=== PATIENT | male | born 1955 | race Caucasian/White ===

== ENCOUNTER 2021-08-26 14:57 | Day surgery (SDC) | payer MEDICARE ==
[2021-08-26] MEDS ORDERED: Depo-Medrol 40 MG/ML IM ONE (14:58)
[2021-08-26] MEDS ORDERED: Marcaine Mpf 0.5% Vial 30 Ml IJ ONE (14:58)
[2021-08-26] MEDS ORDERED: DIPRIVAN 200 MG/20 ML IV ONE (18:00)
[2021-08-26] MEDS ORDERED: Lactated Ringers 1,000 ML IV ONE (18:21)
--- NOTE | 2021-08-26 19:49 | XRAY ---
Indication: Bilateral SI joint injection. Intraoperative fluoroscopy provided for 14 seconds. 4 digital spot image submitted for interpretation demonstrates posterior needle tip projecting over the inferior left and right SI joint. Correlate with intraoperative findings/report.
--- NOTE | 2021-08-27 08:46 | XRAY ---
14 seconds fluoroscopy time in surgery for bilateral SI joint injections.
== END 2021-08-26 18:23 | disposition home or self-care (01) ==
LOC: SDC-PAIN 14:57
PROVIDERS: ATTEND Psychiatry & Neurology Pain Medicine
DX: M46.1 Sacroiliitis, not elsewhere classified (principal); Z79.899 Other long term (current) drug therapy
CPT/HCPCS: 27096; 72202; 77002; 82947; G0260; J1030; J2704

== ENCOUNTER 2021-12-09 12:01 | Day surgery (SDC) | payer MEDICARE ==
[2021-12-09] MEDS ORDERED: Depo-Medrol 40 MG/ML IM ONE (12:02)
[2021-12-09] MEDS ORDERED: Sodium Chloride 0.9(Preservative Free) 10 ML IJ ONE (12:02)
[2021-12-09] MEDS ORDERED: XYLOCAINE-MPF 1% 5ML SDV IJ ONE (12:02)
[2021-12-09] MEDS ORDERED: Lactated Ringers 1,000 ML IV ONE (14:25)
--- NOTE | 2021-12-09 15:06 | XRAY ---
Indication: Lumbar PAULO. Intraoperative fluoroscopy provided for 27 seconds. 2 digital spot image submitted for interpretation demonstrates posterior needle tip projecting posterior to L4-L5 interspace. Small amount of contrast injected for needle tip placement. Correlate with intraoperative findings/report.
--- NOTE | 2021-12-09 15:34 | XRAY ---
27 seconds fluoroscopy time in surgery for lumbar PAULO.
== END 2021-12-09 14:10 | disposition home or self-care (01) ==
LOC: SDC-PAIN 12:01
PROVIDERS: ATTEND Psychiatry & Neurology Pain Medicine
DX: M54.16 Radiculopathy, lumbar region (principal); Z79.899 Other long term (current) drug therapy
CPT/HCPCS: 62323; 72100; 77003; 82947; J1030; Q9966

== ENCOUNTER 2022-03-25 13:35 | Day surgery (SDC) | payer MEDICARE ==
[2022-03-25] MEDS ORDERED: Depo-Medrol 40 MG/ML IM ONE (13:36)
[2022-03-25] MEDS ORDERED: LIDOCAINE HCL 1% 50 MG/5 ML VL PF IJ ONE (13:36)
[2022-03-25] MEDS ORDERED: Sodium Chloride 0.9(Preservative Free) 10 ML IJ ONE (13:36)
[2022-03-25] MEDS ORDERED: Reglan 10 MG/2 ML ONE (14:21)
[2022-03-25] MEDS ORDERED: Pepcid 20 MG VIAL IV ONE (14:21)
[2022-03-25] MEDS ORDERED: DIPRIVAN 200 MG/20 ML IV ONE (15:28)
[2022-03-25] MEDS ORDERED: MORPHINE SULFATE 2 MG INJ ONE ×2 (16:11→16:37)
--- NOTE | 2022-03-25 16:33 | XRAY ---
Indication: Lumbar PAULO. Intraoperative fluoroscopy provided for 23 seconds. 3 digital spot image submitted for interpretation demonstrates posterior needle tip projecting posterior to L4-L5 interspace. Small amount of contrast injected for needle tip placement. Correlate with intraoperative findings/report.
--- NOTE | 2022-03-25 20:36 | XRAY ---
23 seconds fluoroscopy time in surgery for lumbar PAULO.
== END 2022-03-25 16:00 | disposition home or self-care (01) ==
LOC: SDC-PAIN 13:35
PROVIDERS: ATTEND Psychiatry & Neurology Pain Medicine
DX: M54.16 Radiculopathy, lumbar region (principal); Z79.899 Other long term (current) drug therapy
CPT/HCPCS: 62323; 72100; 77003; J1030; J2001; J2270; J2704; Q9966

== ENCOUNTER 2022-06-30 13:44 | Day surgery (SDC) | payer MEDICARE ==
[2022-06-30] MEDS ORDERED: Depo-Medrol 40 MG/ML IM ONE (13:45)
[2022-06-30] MEDS ORDERED: Sodium Chloride 0.9(Preservative Free) 10 ML IJ ONE (13:45)
[2022-06-30] MEDS ORDERED: DIPRIVAN 200 MG/20 ML IV ONE (15:33)
--- NOTE | 2022-06-30 16:26 | XRAY ---
Indication: Caudal PAULO Intraoperative fluoroscopy provided for 21 seconds. 2 digital spot images submitted for interpretation demonstrates caudal needle tip projecting mid sacrum. Small amount of contrast injected for needle tip placement. Correlate with intraoperative findings/report.
[2022-06-30] MEDS ORDERED: Lactated Ringers 1,000 ML IV ONE (16:44)
--- NOTE | 2022-07-01 08:45 | XRAY ---
21 seconds of fluoroscopy was used in surgery for a caudal PAULO.
== END 2022-06-30 16:00 | disposition home or self-care (01) ==
LOC: SDC-PAIN 13:44
PROVIDERS: ATTEND Psychiatry & Neurology Pain Medicine
DX: M54.16 Radiculopathy, lumbar region (principal); Z79.899 Other long term (current) drug therapy
CPT/HCPCS: 62323; 72220; 77003; J1030; J2704; Q9966

== ENCOUNTER 2022-07-21 07:52 | Day surgery (SDC) | payer MEDICARE ==
[2022-07-21] MEDS ORDERED: BUPIVACAINE 0.5% VIAL IJ ONE (07:53)
[2022-07-21] MEDS ORDERED: Depo-Medrol 40 MG/ML IM ONE (07:53)
[2022-07-21] MEDS ORDERED: DIPRIVAN 200 MG/20 ML IV ONE (09:15)
--- NOTE | 2022-07-21 09:57 | XRAY ---
Indication: Bilateral SI joint injection. Intraoperative fluoroscopy provided for 19 seconds. 4 digital spot image submitted for interpretation demonstrates posterior needle tip projecting over the left and right SI joint. Correlate with intraoperative findings/report.
[2022-07-21] MEDS ORDERED: Lactated Ringers 1,000 ML IV ONE (11:42)
--- NOTE | 2022-07-21 12:22 | XRAY ---
19 seconds of fluoroscopy was used in surgery for a bilateral sacroiliac joint injection.
== END 2022-07-21 09:50 | disposition home or self-care (01) ==
LOC: SDC-PAIN 07:52
PROVIDERS: ATTEND Psychiatry & Neurology Pain Medicine
DX: M46.1 Sacroiliitis, not elsewhere classified (principal); Z79.899 Other long term (current) drug therapy
CPT/HCPCS: 01992; 27096; 72202; 77002; 82947; G0260; J1030; J2704

== ENCOUNTER 2022-11-10 12:39 | Day surgery (SDC) | payer MEDICARE ==
[2022-11-10] MEDS ORDERED: Sodium Chloride 0.9(Preservative Free) 10 ML IJ ONE (12:40)
[2022-11-10] MEDS ORDERED: Depo-Medrol 40 MG/ML IM ONE (12:40)
[2022-11-10] MEDS ORDERED: DIPRIVAN 200 MG/20 ML IV ONE (14:35)
--- NOTE | 2022-11-10 15:14 | XRAY ---
Indication: Caudal PAULO. Intraoperative fluoroscopy provided for 17 seconds. 2 digital spot image submitted for interpretation demonstrates caudal needle tip projecting mid sacrum. Small amount of contrast injected for needle tip placement. Correlate with intraoperative findings/report.
[2022-11-10] MEDS ORDERED: Lactated Ringers 1,000 ML IV ONE (16:51)
--- NOTE | 2022-11-10 20:13 | XRAY ---
17 seconds of fluoroscopy was used in surgery for a caudal PAULO.
== END 2022-11-10 15:05 | disposition home or self-care (01) ==
LOC: SDC-PAIN 12:39
PROVIDERS: ATTEND Psychiatry & Neurology Pain Medicine
DX: M54.16 Radiculopathy, lumbar region (principal); Z79.899 Other long term (current) drug therapy
CPT/HCPCS: 62323; 72220; 77003; 82947; J1030; J2704; Q9966

== ENCOUNTER 2022-12-02 12:25 | Day surgery (SDC) | payer MEDICARE ==
--- NOTE | 2022-12-02 15:10 | XRAY ---
Indication: Left knee injection. Intraoperative fluoroscopy provided for 7 seconds. Single digital spot image submitted for interpretation demonstrates needle tip projecting over left femur intercondylar notch. Small amount of contrast injected for needle tip placement. Correlate with intraoperative findings/report.
--- NOTE | 2022-12-02 15:18 | XRAY ---
7 seconds of fluoroscopy was used in surgery for left intra-articular knee injection.
== END 2022-12-02 14:04 | disposition home or self-care (01) ==
LOC: SDC-PAIN 12:25
PROVIDERS: ATTEND Psychiatry & Neurology Pain Medicine
DX: M17.12 Unilateral primary osteoarthritis, left knee (principal); E11.9 Type 2 diabetes mellitus without complications; Z79.899 Other long term (current) drug therapy
CPT/HCPCS: 20610; 73560; 77002; 82947; Q9966

== ENCOUNTER 2023-06-08 15:23 | Day surgery (SDC) | payer MEDICARE ==
[2023-06-08] MEDS ORDERED: Depo-Medrol 40 MG/ML IM ONE (15:24)
[2023-06-08] MEDS ORDERED: BUPIVACAINE 0.5% VIAL IJ ONE (15:24)
[2023-06-08] MEDS ORDERED: XYLOCAINE-MPF 1% 5ML SDV IJ ONE (15:24)
--- NOTE | 2023-06-08 19:33 | XRAY ---
Indication: Left knee injection. Intraoperative fluoroscopy provided for 7 seconds. Single digital spot image submitted for interpretation demonstrates needle tip projecting over the left femur intercondylar notch. Small amount of contrast injected for needle tip placement. Correlate with intraoperative findings/report.
--- NOTE | 2023-06-09 12:17 | XRAY ---
7 seconds of fluoroscopy was used in surgery for a left intra-articular knee injection.
== END 2023-06-08 17:20 | disposition home or self-care (01) ==
LOC: SDC-PAIN 15:23
PROVIDERS: ATTEND Psychiatry & Neurology Pain Medicine
DX: M17.12 Unilateral primary osteoarthritis, left knee (principal); R73.03 Prediabetes
CPT/HCPCS: 20610; 73560; 77002; 82947; J1030; Q9966

== ENCOUNTER 2024-01-11 14:15 | Day surgery (SDC) | payer MEDICARE ==
[2024-01-11] MEDS ORDERED: Depo-Medrol 40 MG/ML IM ONE (14:16)
[2024-01-11] MEDS ORDERED: BUPIVACAINE 0.5% VIAL IJ ONE (14:16)
[2024-01-11] MEDS ORDERED: LIDOCAINE HCL 1% AMPUL 5 ML IJ ONE (14:16)
--- NOTE | 2024-01-11 19:03 | XRAY ---
Indication: Left knee injection. Intraoperative fluoroscopy provided for 5 seconds. Single digital spot image submitted for interpretation demonstrates needle tip projecting over right left intercondylar notch. Small amount of contrast injected for needle tip placement. Correlate with intraoperative findings/report.
--- NOTE | 2024-01-12 09:30 | XRAY ---
5 seconds of fluoroscopy was used in surgery for a left intra-articular knee injection.
== END 2024-01-11 16:57 | disposition home or self-care (01) ==
LOC: SDC-PAIN 14:15
PROVIDERS: ATTEND Psychiatry & Neurology Pain Medicine
DX: M17.12 Unilateral primary osteoarthritis, left knee (principal); E11.9 Type 2 diabetes mellitus without complications
CPT/HCPCS: 20610; 73560; 77002; 82947; Q9966

== ENCOUNTER 2024-02-08 07:27 | Day surgery (SDC) | payer MEDICARE ==
[2024-02-08] MEDS ORDERED: Xylocaine-Mpf 2% 5 Ml Vial IJ ONE (07:28)
[2024-02-08] MEDS ORDERED: Depo-Medrol 40 MG/ML IM ONE (07:28)
[2024-02-08] MEDS ORDERED: DIPRIVAN 200 MG/20 ML IV ONE (09:13)
--- NOTE | 2024-02-08 10:09 | XRAY ---
Indication: Bilateral L4-S1 MBB. Intraoperative fluoroscopy provided for 50 seconds. 6 digital spot images submitted for interpretation demonstrates posterior needle tips projecting over the expected left and right L4-S1 nerve roots. Correlate with intraoperative findings/report. Incidental incompletely visualized multilevel lumbosacral fusion hardware.
--- NOTE | 2024-02-08 12:09 | XRAY ---
50 seconds of fluoroscopy was used in surgery for a bilateral L4-S1 MBB.
== END 2024-02-08 09:45 | disposition home or self-care (01) ==
LOC: SDC-PAIN 07:27
PROVIDERS: ATTEND Psychiatry & Neurology Pain Medicine
DX: M47.816 Spondylosis without myelopathy or radiculopathy, lumbar region (principal); R73.03 Prediabetes
CPT/HCPCS: 64493; 64494; 72020; 77002; 82947; J2704

== ENCOUNTER 2024-03-22 08:46 | Day surgery (SDC) | payer MEDICARE ==
[2024-03-22] MEDS ORDERED: BUPIVACAINE 0.5% VIAL IJ ONE (08:47)
[2024-03-22] MEDS ORDERED: Depo-Medrol 40 MG/ML IM ONE (08:47)
[2024-03-22] MEDS ORDERED: DIPRIVAN 200 MG/20 ML IV ONE (09:50)
--- NOTE | 2024-03-22 10:56 | XRAY ---
Indication: Bilateral L4-S1 MBB. Intraoperative fluoroscopy provided for 30 seconds. 3 digital spot image submitted for interpretation demonstrates posterior needle tips projecting over the expected left and right L4-S1 nerve roots. Correlate with intraoperative findings/report. Incidental incompletely visualized multilevel lumbosacral fusion hardware
--- NOTE | 2024-03-22 12:21 | XRAY ---
30 seconds of fluoroscopy was used in surgery for a bilateral L4-S1 MBB.
== END 2024-03-22 10:28 | disposition home or self-care (01) ==
LOC: SDC-PAIN 08:46
PROVIDERS: ATTEND Psychiatry & Neurology Pain Medicine
DX: M47.816 Spondylosis without myelopathy or radiculopathy, lumbar region (principal); R73.03 Prediabetes
CPT/HCPCS: 64493; 64494; 72020; 77002; 82947; J2704

== ENCOUNTER 2024-05-02 08:03 | Day surgery (SDC) | payer MEDICARE ==
[2024-05-02] MEDS ORDERED: Depo-Medrol 40 MG/ML IM ONE (08:04)
[2024-05-02] MEDS ORDERED: LIDOCAINE HCL 1% AMPUL 5 ML IJ ONE (08:04)
[2024-05-02] MEDS ORDERED: BUPIVACAINE 0.5% VIAL IJ ONE (08:04)
[2024-05-02] MEDS ORDERED: propofoL IV ONE (09:27)
--- NOTE | 2024-05-02 10:43 | XRAY ---
Indication: Left L4-S1 RFA. Intraoperative fluoroscopy provided for 26 seconds. 3 digital spot image submitted for interpretation demonstrates posterior needle tips projecting over expected left L4-S1 nerve roots. Correlate with intraoperative findings/report. Incidental incompletely visualized multilevel bilateral posterior lumbar fusion hardware.
--- NOTE | 2024-05-02 10:50 | XRAY ---
26 seconds of fluoroscopy was used in surgery for a left L4-S1 RFA.
== END 2024-05-02 10:10 | disposition home or self-care (01) ==
LOC: SDC-PAIN 08:03
PROVIDERS: ATTEND Psychiatry & Neurology Pain Medicine
DX: M47.817 Spondylosis without myelopathy or radiculopathy, lumbosacral region (principal); E11.9 Type 2 diabetes mellitus without complications
CPT/HCPCS: 64635; 64636; 72100; 77002; 82947; J2704

== ENCOUNTER 2024-05-03 07:35 | Day surgery (SDC) | payer MEDICARE ==
[2024-05-03] MEDS ORDERED: Depo-Medrol 40 MG/ML IM ONE (07:36)
[2024-05-03] MEDS ORDERED: BUPIVACAINE 0.5% VIAL IJ ONE (07:36)
[2024-05-03] MEDS ORDERED: LIDOCAINE HCL 1% AMPUL 5 ML IJ ONE (07:36)
[2024-05-03] MEDS ORDERED: propofoL IV ONE (09:21)
--- NOTE | 2024-05-03 10:27 | XRAY ---
Indication: Right L4-S1 RFA. Intraoperative fluoroscopy provided for 49 seconds. 9 digital spot images submitted for interpretation demonstrates posterior needle tips projecting over expected right L4-S1 nerve roots. Correlate with intraoperative findings/report. Incidental incompletely visualized multilevel bilateral posterior lumbar fusion hardware.
--- NOTE | 2024-05-03 10:29 | XRAY ---
49 seconds of fluoroscopy was used in surgery for a right L4-S1 RFA.
== END 2024-05-03 09:55 | disposition home or self-care (01) ==
LOC: SDC-PAIN 07:35
PROVIDERS: ATTEND Psychiatry & Neurology Pain Medicine
DX: M47.816 Spondylosis without myelopathy or radiculopathy, lumbar region (principal); E11.9 Type 2 diabetes mellitus without complications
CPT/HCPCS: 64635; 64636; 72100; 77002; 82947; J2704

== ENCOUNTER 2024-05-30 08:59 | Day surgery (SDC) | payer MEDICARE ==
[2024-05-30] MEDS ORDERED: Sodium Chloride 0.9(Preservative Free) 10 ML IJ ONE (09:00)
[2024-05-30] MEDS ORDERED: dexAMETHasone sodium phosphate IJ ONE (09:00)
[2024-05-30] MEDS ORDERED: propofoL IV ONE (10:19)
--- NOTE | 2024-05-30 13:12 | XRAY ---
56 seconds of fluoroscopy was used in surgery for a right L4-S1 transforaminal PAULO.
== END 2024-05-30 11:02 | disposition home or self-care (01) ==
LOC: SDC-PAIN 08:59
PROVIDERS: ATTEND Psychiatry & Neurology Pain Medicine
DX: M54.16 Radiculopathy, lumbar region (principal); R73.03 Prediabetes
CPT/HCPCS: 64483; 64484; 72100; 77003; 82947; J1100; J2704; Q9966

== ENCOUNTER 2024-08-02 10:14 | Day surgery (SDC) | payer MEDICARE ==
[2024-08-02] MEDS ORDERED: LIDOCAINE HCL 1% AMPUL 5 ML IJ ONE (10:15)
[2024-08-02] MEDS ORDERED: Sodium Chloride 0.9(Preservative Free) 10 ML IJ ONE (10:15)
[2024-08-02] MEDS ORDERED: Depo-Medrol 40 MG/ML IM ONE (10:15)
[2024-08-02] MEDS ORDERED: propofoL IV ONE ×2 (12:28→12:49)
[2024-08-02] MEDS ORDERED: Lactated Ringers 1,000 ML IV ONE (13:13)
--- NOTE | 2024-08-02 16:25 | XRAY ---
Indication: Caudal PAULO Intraoperative fluoroscopy provided for 34 seconds. 3 digital spot image submitted for interpretation demonstrates caudal needle tip projecting small amount of contrast injected for needle tip placement. Correlate with intraoperative findings/report. Incidental incompletely visualized bilateral lumbosacral junction fusion hardware.
--- NOTE | 2024-08-02 16:39 | XRAY ---
34 seconds of fluoroscopy used in surgery for a caudal PAULO.
== END 2024-08-02 13:25 | disposition home or self-care (01) ==
LOC: SDC-PAIN 10:14
PROVIDERS: ATTEND Psychiatry & Neurology Pain Medicine
DX: M54.16 Radiculopathy, lumbar region (principal); E11.9 Type 2 diabetes mellitus without complications
CPT/HCPCS: 62323; 72220; 82947; J2704; Q9966

== ENCOUNTER 2025-02-06 15:32 | Day surgery (SDC) | payer MEDICARE, SELFPAY ==
[2025-02-06] MEDS ORDERED: BUPIVACAINE 0.5% VIAL IJ ONE (15:33)
[2025-02-06] MEDS ORDERED: LIDOCAINE HCL 1% 50 MG/5 ML VL IJ ONE (15:33)
[2025-02-06] MEDS ORDERED: methylPREDNISolone acetate IM ONE (15:33)
--- NOTE | 2025-02-06 20:01 | XRAY ---
Indication: Bilateral SI joint injection. Intraoperative fluoroscopy provided for 48 seconds. 2 digital spot image submitted for interpretation demonstrates posterior needle tips projecting over expected left and right SI joints. Small amount of contrast injected for needle tip placement. Correlate with intraoperative findings/report. Incidental incompletely visualized lower lumbar fusion hardware.
--- NOTE | 2025-02-07 09:18 | XRAY ---
48 seconds of fluoroscopy was used in surgery for a bilateral sacroiliac joint injection.
== END 2025-02-06 18:25 | disposition home or self-care (01) ==
LOC: SDC-PAIN 15:32
PROVIDERS: ATTEND Psychiatry & Neurology Pain Medicine
DX: M46.1 Sacroiliitis, not elsewhere classified (principal); R73.03 Prediabetes